=== PATIENT | male | born 1990 | race Caucasian/White ===

== ENCOUNTER 2022-09-30 14:40 | Emergency (ER) | payer OTHER ==
[2022-09-30] MEDS: Diphtheria,Pertussis(Acell),Tetanus Vaccine 0.5 ML Syringe IM ONE (15:15)
[2022-09-30] MEDS: Lidocaine 1% 20 ML MDV INJECT ONE (15:16)
[2022-09-30] MEDS: Lidocaine 1% 20 ML MDV ONE (15:17)
== END 2022-09-30 15:40 | disposition home or self-care (01) ==
LOC: KA.ED 14:40
DX: S61.211A Laceration without foreign body of left index finger without damage to nail, initial encounter (principal); Z79.899 Other long term (current) drug therapy; W23.1XXA Caught, crushed, jammed, or pinched between stationary objects, initial encounter
CPT/HCPCS: 12002; 73140-F6; 90471; 90715; 99283-25